=== PATIENT | male | born 1980 | race Asian ===

== ENCOUNTER 2024-10-17 00:22 | Day surgery (SDC) | payer OTHER, SELFPAY ==
[2024-10-02 14:58] VITALS: BMI 29.6
--- OUTSIDE RECORDS SUMMARY | 2024-10-17 00:25 | XMS_ITS | Clinical Summary ---
Author Organization [facility] [employer] Address [address] [place] [address] Care Team Providers Care Park Aide Name Role Phone Genie العلي MD Primary Care Provider [phone] Source Comments [facility] [employer],non-owned Affiliates and Associated Physician Practices is amultiple site organization consisting of ambulatory clinics and hospital sitesin [place], [place], [place] and [place]. This disclosure is being madepursuant to the Care Everywhere program and may not contain all information available regarding this patient. Last updated 18.[facility] [employer] Allergies No known active allergies Medications * Be aware that medications may not be up to date on this document. Alwaysverify current medications with the patient. Medication Sig Dispensed Refills Start Date End Date Status multivitamin daily (THERAGRAN) tablet Take 1 Tab by mouth daily with food. Active OXYCODONE HCL PO Take by mouth. Acti ve Social History Tobacco Use Types Packs/Day Years Used Date Smoking Tobacco: Never Alcohol Use Standard Drinks/Week Comments Yes 0 (1 standard drink = 0.6 oz pur e alcohol) social Sex and Gender Information Value Date Recorded Sex Assigned at Not on file Gender Identity Not on file Sexual Orientation Not on file Last Filed Vital Signs Vital Sign Reading Time Taken Comments Blood Pressure 128/88 05/19/2012 8:33 PM CDT Pulse 104 05/19/2012 8:56 PM CDT Temperature 36.4 C (97.6 F) 05/19/2012 8:56 PM CDT Respiratory Rate 17 05/19/2012 8:56 PM CDT Oxygen Saturation 100% 05/19/2012 8:56 PM CDT Inhaled Oxygen Concentration - - Weight 74.8 kg (165 lb) 05/19/2012 7:29 PM CDT Height 172.7 cm (5' 8 ) 05/19/2012 7:29 PM CDT Body Mass Index 25.09 05/19/2012 7:29 PM CDT Plan of Treatment Health Maintenance Due Date Last Done Comments COLOGUARD (AGES 45-75) - COL ON CA SCREENING 1979 COLON MONITORING 1979 COLONOSCOPY - COLON CA SCREENING 1979 CT COLONOGRAPHY - COLON CA SCREENING 1979 Colorectal Cancer Screening 1979 FIT - COLON CA SCREENING 1979 FLEX SIG - COLON CA SCREENING 1979 LIPID TESTING 1979 HIV SCREENING 1994 HEPATITIS C SCREENING 07/31/1997 DTAP/TDAP/TD VACCINES (1 - Tdap) 1998 HEPATITIS B VACCINE (1 of 3 - 19+ 3-dose series) 1998 COVID-19 VACCINE (1 - 2023-2 5 season) 2024 INFLUENZA VACCINE (#1) 2024 DEPRESSION SCREENING 08/15/2024 ZOSTER VACCINE (1 of 2) 2029 HIB VACCINE Aged Out No longer eligi ble based on patient's age to complete this topic HPV VACCINE Aged Out No longer eligi ble based on patient's age to complete this topic MENINGOCOCCAL (Group B) VACCINE Aged Out No longer eligible based on patient's age to complete this topic MENINGOCOCCAL VACCINE Aged Out No sanjuanita christy eligible based on patient's age to complete this topic PNEUMOCOCCAL VACCINE Aged Out No long er eligible based on patient's age to complete this topic Care Teams Park Aide Relationship Specialty Start Date End Date Genie العلي MD [address] [place] [address] PCP - General 05/19/12
--- OUTSIDE RECORDS SUMMARY | 2024-10-17 00:25 | XMS_ITS | Patient Health Summary ---
Author Organization [facility] [employer] Address [address] [place] [address] Care Team Providers Care Line Welder Name Role Phone Genie العلي MD Primary Care Provider [phone] Note from [facility],non-owned Affiliates and Associated Physician Practices is amultiple site organization consisting of ambulatory clinics and hospital sitesin [place], [place], [place] and [place]. This disclosure is being madepursuant to the Care Everywhere program and may not contain all information available regarding this patient. Last updated 18.[facility] Allergies No known active allergies Medications * Be aware that medications may not be up to date on this document. Alwaysverify current medications with the patient. * multivitamin daily (THERAGRAN) tablet Take 1 Tab by mouth daily with food. * OXYCODONE HCL PO Take by mouth. Social History Tobacco Use Types Packs/Day Years [...] Mass Index 25.09 05/19/2012 7:29 PM CDT Procedures * EKG 12-LEAD(Performed 05/19/2012) Performed for Near syncope * COMPREHENSIVE METABOLIC PANEL(Performed 05/19/2012) * CBC W AUTO DIFFERENTIAL(Performed 05/19/2012) * GLUCOSE - POINT OF CARE(Performed 05/19/2012) Results * EKG 12-LEAD (05/19/2012 7:41 PM CDT) Ventricular Rate 98 BPM [facility] Atrial Rate 98 BPM [facility] P-R Interval 160 ms [facility] QRS Duration ms 90 ms [facility] Q-T Interval ms 356 ms [facility] QTC Calculation (Bezet) 454 ms [facility] Calculated P [place] 55 degrees [facility] Calculated R [place] 31 degrees [facility] Calculated T [place] 36 degrees [facility] Interpretation EKG NORMAL SINUS RHYTHM NORMAL ECG NO PREVIOUS ECGS AVAILABLE Confirmed by MD JIMMY, KASEY Wood (3) on 05/20/2012 7:36:49 AM [facility] 05/19/2012 7:41 PM CDT 05/20/2012 7:36 AM CDT Narrative Transcriptions Document, Scanned - 05/20/2012 7:38 AM CDT Osbaldo Frankel DO ECG ORDERABLES [facility] * (ABNORMAL) CBC W AUTO DIFFERENTIAL (05/19/2012 7:39 PM CDT) WBC 16.9(H) 4.0 - 10.0 K/CUMM [facility] RBC 5.17 4.40 - 6.40 M/CUMM [facility] Hemoglobin 16.4 13.5 - 18.0 gm/dL [facility] Hematocrit 45.4 40.0 - 54.0 % [facility] MCV 87.8 80.0 - 100.0 fl [facility] MCH 31.7 26.0 - 34.0 pg [facility] MCHC 36.1 31.0 - 37.0 gm/dL [facility] Platelet Count 203 150 - 400 K/CUMM [facility] RDW 12.3 11.5 - 14.5 % [facility] Neutrophils % Manual 90(H) 50 - 70 manual % [facility] Lymphocytes % Manual 7(L) 20 - 40 manual % [facility] Monocytes % Manual 3 0 - 12 manual % [facility] RBC Morphology Normal [facility] WBC Morph Normal Morphology [facility] Cells Counted 100 [facility] Comment SMEAR REVIEW COMPLETED [facility] Addendum CBC A. Line [facility] Blood specimen (specimen) BLOOD SPECIMEN / Unknown 05/19/2012 7:39 PM CDT 05/19/2012 7:42 PM CDT Osbaldo Frankel DO LAB - HEMATOLOGY ORD ERABLES [facility] [address] [place] [address] * (ABNORMAL) COMPREHENSIVE METABOLIC PANEL (05/19/2012 7:39 PM CDT) Sodium 138 136 - 145 mmol/L [facility] Potassium 5.0 3.5 - 5.1 mmol/L [facility] Chloride 102 98 - 107 mmol/L [facility] BUN 14 7 - 21.0 mg/dl [facility] Creatinine 0.83 0.5 - 1.3 mg/dl [facility] Glucose 142(H) 75 - 110 mg/dl [facility] Calcium 9.1 8.5 - 10.1 mg/dl [facility] Alkaline Phosphatase 53 38 - 126 U/L [facility] AST 19 5.0 - 40 U/L [facility] Bilirubin Total 0.6 0.2 - 1.0 mg/dl [facility] Protein Total 7.9 6.4 - 8.2 gm/dl [facility] Albumin 4.1 3.4 - 5.0 gm/dl [facility] CO2 26 22 - 30 mmol/L [facility] ALT 41 12.0 - 78.0 U/L [facility] eGFR by MDRD >60 >60 mL/min/1.[address] [facility] Comment eGFR [facility] Comment: The eGFR does not apply to patients who are younger than 18 or older than 70. Blood specimen (specimen) BLOOD SPECIMEN / Unknown 05/19/2012 7:39 PM CDT 05/19/2012 7:42 PM CDT Osbaldo Frankel DO LAB - CHEMISTRY ORDE RABNISA [facility] [address] [place] [address] * (ABNORMAL) GLUCOSE - POINT OF CARE (05/19/2012 7:27 PM CDT) Pathologist [facility] Glucose WB/POC 146(H) 70 - 110 mg/dl [facility] BLOOD SPECIMEN / Unknown 05/19/2012 7:27 PM CDT 05/20/2012 8:00 AM CDT Osbaldo Frankel DO LAB - POINT OF CARE ORDERABLES Performing Organization Address City/[facility] Co de Phone Number [facility] [address] [place] [id number] Care Teams Line Welder Relationship Specialty Start Date End Date Genie العلي MD [address] [place] [address] PCP - General 05/19/12
--- OUTSIDE RECORDS SUMMARY | 2024-10-17 00:25 | XMS_ITS | Referral Summary ---
Author Organization [facility] [employer] Address [address] [place] [address] Care Team Providers Care Ic Engineer Name Role Phone Genie العلي MD Primary Care Provider Source Comments [facility] [employer],non-owned Affiliates and Associated Physician Practices is amultiple site organization consisting of ambulatory clinics and hospital sitesin [place], [place], [place] and [place]. This disclosure is being madepursuant to the Care Everywhere program and may not contain all information available regarding this patient. Last updated 18.[facility] [employer] Allergies No known active allergies Medications * [...] 05/19/2012 7:29 PM CDT Plan of Treatment Not on file Care Teams Ic Engineer Relationship Specialty Start Date End Date Genie العلي MD [address] [place] [address] PCP - General 05/19/12
--- OUTSIDE RECORDS SUMMARY | 2024-10-17 00:25 | XMS_ITS | Clinical Summary ---
Author Organization [facility] Address [address] [place] [address] Care Team Providers Care Dewer Name Role Phone Unavailable Primary Care Provider Unavailabl e Social History Tobacco Use Types Packs/Day Years Used Date Smoking Tobacco: Never Assessed Sex and Gender Information Value Date Recorded Sex Assigned at Not on file Legal Sex Male 6:21 PM CDT Gender Identity Not on file Sexual Orientation Not on file Plan of Treatment Health Maintenance Due Date Last Done Comments Colorectal Cancer Screening Colonoscopy (10 Years) 1979 Annual Physical 1982 Hepatitis C 1997 DTaP, Tdap and Td Vaccines ( 1 - Tdap) 1998 Hepatitis B Vaccines (1 of 3 - 19+ 3-dose series) 1998 COVID-19 Vaccine (2023-2 5 season) 2024 Influenza Adult (#1) 2024 HPV Vaccines Aged Out No longer eligi ble based on patient's age to complete this topic Meningococcal B Vaccine Aged Out No l onger eligible based on patient's age to complete this topic Meningococcal Vaccine Aged Out No sanjuanita christy eligible based on patient's age to complete this topic Pneumococcal Vaccine: Pediat rics (0 to 5 Years) and At-Risk Patients (6 to 64 Years) Aged Out No longer eligible b ased on patient's age to complete this topic RSV Immunizations Under 20 Months Aged Out No longer eligible based on patient's age to complete this topic
[2024-10-17 12:25] VITALS: BP 141/100; PULSE 93; RESP 18; TEMP 36.1; O2SAT 100
[2024-10-17] MEDS: LACTATED RINGERS 1,000 ML 150 ML IV CONT (12:56)
--- NOTE | 2024-10-17 13:02 | WPDANESEPPF ---
Anes - Initial Pre Proc Eval Procedure: Operation Date: 10/17/24 13:00 Proposed Procedures p Screening Colonoscopy - Rene Oglesby MD Date/Time: 10/17/24 13:02 Surgeon: Rene Oglesby MD Pre Op Diagnosis: Screening for malignant neoplasm of colon Patient Data Age: 44 Gender: M Height: 1.73 m Weight: 89.7 kg Last Vital Signs Temp 36.1 C L 10/17/24 12:25 Pulse 93 10/17/24 12:25 Resp 18 10/17/24 12:25 BP 141/100 H 10/17/24 12:25 Pulse Ox 100 10/17/24 12:25 O2 Del Method Room Air 10/17/24 12:25 Allergies Allergy/AdvReac Type Severity Reaction Status Date / Time oxycodone Allergy Unknown Dizziness Verified 10/17/24 12:24 Home Medications ?Medication ?Instructions ?Recorded ?Confirmed ?Type No Home Medications 07/16/24 10/02/24 History Patient hx anesthesia problems: none Family hx anesthesia problems: none Results Review: All pre-operative results and documents have been reviewed as part of the pre-operative evaluation. [facility] Past Medical History Medical History HLD (hyperlipidemia) LISA (obstructive sleep apnea) Surgical History Surgical History History of orchiectomy, unilateral History of vasectomy Family History Family History Father Family history of seizure disorder Mother Family history of seizure disorder Social History Social History Smoking status: Never smoker Second hand tobacco smoke exposure: No Alcohol intake: current Drinks per week: 4 Alcohol use details: ON WEEKENDS Substance use: never Substance use type: does not use Living arrangements: with family Occupation/Education: occupation Gender identity (if verbalized by the patient): Male Spiritual care concerns: No Anes - Eval Final PreProcedure Day of Procedure 10/17/24 13:02 Patient weight: obese Heart: regular rate and rhythm Lungs: clear to auscultation Airway: Mallampati scale class II Neurological: alert and oriented Last oral intake: >/= 8 hours ASA classification: III Emergent: no Anesthetic plan: proceed Anesthesia type and monitoring: general GIVS and standard monitoring Results Review: All pre-operative results and documents have been reviewed as part of the pre-operative evaluation. Informed Consent: The patient's anesthetic plan and its attendant risks and benefits were discussed with the patient/family/POA. Questions were solicited and answers provided to the satisfaction of the patient/family/POA.
--- NOTE | 2024-10-17 13:53 | PM.IMHP ---
H&P: HPI History of Present Illness Date/Time: 10/17/24 13:53 Chief Complaint: Screening colonoscopy Narrative: This is the patient's first colonoscopy. There are no GI symptoms and there is no family history of colorectal cancer. Review of Systems Review of Systems: All systems reviewed & are unremarkable except as noted in HPI and below PMFSH Past Medical History Medical History HLD (hyperlipidemia) LISA (obstructive sleep apnea) Surgical History Surgical History History of orchiectomy, unilateral History of vasectomy Family History Family History Father Family history of seizure disorder Mother Family history of seizure disorder Social History Social History Smoking status: Never smoker Second hand tobacco smoke exposure: No Alcohol intake: current Drinks per week: 4 Alcohol use details: ON WEEKENDS Substance use: never Substance use type: does not use Living arrangements: with family Occupation/Education: occupation Gender identity (if verbalized by the patient): Male Spiritual care concerns: No Meds Home Medications and Allergies Home Medications ?Medication ?Instructions ?Recorded ?Confirmed ?Type No Home Medications 07/16/24 10/02/24 History Allergies Allergy/AdvReac Type Severity Reaction Status Date / Time oxycodone Allergy Unknown Dizziness Verified 10/17/24 12:24 Vital Signs Vital Signs - 24 hr 10/17/24 12:25 Temperature 97 F L Pulse Rate 93 Respiratory Rate 18 Blood Pressure 141/100 H Pulse Oximetry 100 Oxygen Delivery Room Air Exam Const: General: cooperative and healthy appearing Resp: Effort & Inspection: normal respiratory effort and able to speak in complete sentences Auscultation: clear to auscultation bilaterally Cardio: Rate: regular rate Rhythm: regular rhythm GI: Inspection: normal to inspection GI Palp: No No hepatosplenomegaly present Auscultation: normal bowel sounds Rectal Exam: deferred Skin: General skin exam: normal color Psych: Appearance: grossly normal Mental Status: mental status grossly normal Assessment and Plan Assessment and plan (1) Encounter for screening colonoscopy: Code(s): Z12.11 - Encounter for screening for malignant neoplasm of colon Status: Acute Assessment and Plan: The patient is deemed a good candidate for the procedure. Consent signed. Will proceed.
[2024-10-17 14:23] VITALS: BP 144/86; PULSE 86; RESP 19; O2SAT 98
[2024-10-17 14:33] VITALS: BP 134/99; PULSE 87; RESP 24; O2SAT 96
[2024-10-17 14:43] VITALS: BP 145/98; PULSE 79; RESP 21; O2SAT 98
== END 2024-10-17 14:54 | disposition home or self-care (01) ==
PROVIDERS: PCP Physician Assistant; Visit Provider Internal Medicine Gastroenterology
PROC: 0DJD8ZZ Inspection of Lower Intestinal Tract, Via Natural or Artificial Opening Endoscopic (ICD-10-PCS; CPT 45378; principal; 2024-10-17 13:00)
DX: Z12.11 Encounter for screening for malignant neoplasm of colon (principal); E66.9 Obesity, unspecified; Z68.30 Body mass index [BMI] 30.0-30.9, adult
CPT/HCPCS: 45378; J2704; J7120